=== PATIENT | female | born 1955 | race Caucasian/White ===

== ENCOUNTER 2017-09-24 12:43 | Emergency (ER) | payer SELFPAY ==
[~2017-09-24] VITALS: Ht 152.4 cm; Wt 47.6 kg
[2017-09-24 13:26] VITALS: BP 113/72
== END 2017-09-24 13:26 | disposition home or self-care (01) ==
LOC: ED 12:43
DX: B02.9 Zoster without complications (principal)

== ENCOUNTER 2019-05-07 18:32 | Emergency (ER) | payer MEDICAID ==
[~2019-05-07] VITALS: Ht 152.4 cm; Wt 47.2 kg
[2019-05-07 18:54] VITALS: Ht 152.4 cm; Wt 47.2 kg
[2019-05-07 21:53] LABS: BASOPHIL % 0.6 % (0-2); PLATELET COUNT 298 x10^3mcL (130-400); RED CELL DISTRIBUTION WIDTH 14.3 % (11.5-14.5)
[2019-05-07 22:21] LABS: CALCIUM 8.4 mg/dL (8.5-10.1); CARBON DIOXIDE 28.3 mmol/L (21-32); CHLORIDE SERUM 107 mmol/L (98-107); CREATININE SERUM 0.5 mg/dL (0.6-1.0); GFR1 > 60 mL/min; GLUCOSE SERUM 101 mg/dL (74-106); POTASSIUM SERUM 4.5 mmol/L (3.5-5.1); SODIUM SERUM 142 mmol/L (136-145)
[2019-05-07 22:26] LABS: ALBUMIN 3.6 g/dL (3.4-5.0); ALKALINE PHOSPHATASE 100 U/L (46-116); ALT/SGPT 22 U/L (14-59); AST/SGOT 17 U/L (15-37); BILIRUBIN TOTAL 0.3 mg/dL (0.20-1.00); LIPASE 174 IU/L (73-393); TOTAL PROTEIN, SERUM 7.2 g/dL (6.4-8.2)
[2019-05-08 01:29] VITALS: BP 106/87
== END 2019-05-08 01:29 | disposition home or self-care (01) ==
LOC: ED 18:32
PROVIDERS: Emergency Medicine
DX: K20.9 Esophagitis, unspecified (principal); R07.89 Other chest pain
CPT/HCPCS: J3490; J7030; Q0092